=== PATIENT | female | born 1990 | race Caucasian/White ===

== ENCOUNTER 2025-02-01 21:09 | Inpatient (IN) | payer BC ==
[~2025-02-01] VITALS: Ht 180.3 cm; Wt 71.7 kg
[2025-02-01 22:32] LABS: PLATELET COUNT (AUTO) 263 K/uL (179-408); RED BLOOD CELL COUNT(AUTO) 4.37 MIL/uL (3.63-4.92); RED CELL DISTRIBUTION WIDTH 13.6 % (12.3-17.7); WHITE BLOOD COUNT (AUTO) 5.2 K/uL (3.8-11.8)
[2025-02-01 22:38] LABS: CREATININE 0.7 mg/dL (0.6-1.3); SODIUM SERUM 139.0 mmol/L (136-145); UREA NITROGEN, BLOOD 7.0 mg/dL (7-18)
[2025-02-01 22:43] LABS: ASPARTATE AMINOTRANSFERASE 12.0 U/L (15-37); TOTAL PROTEIN, SERUM 7.3 g/dL (6.4-8.2)
[2025-02-01] MEDS: diphenhydrAMINE 50 MG/1 ML VIAL IV ONE (23:02)
[2025-02-01] MEDS: HYDROCORTISONE SOD SUCCINATE 100 MG/2 ML VIAL IV ONE (23:03)
[2025-02-01] MEDS ORDERED: IOHEXOL 350 100 ML INFUS..BTL ONE (23:18)
[2025-02-01] MEDS ORDERED: IV NORMAL SALINE 250 ML IV ONE (23:18)
[2025-02-01] MEDS ORDERED: SWABABLE VALVE TRANSFER SET EA MC ONE (23:18)
[2025-02-02] MEDS ORDERED: REMEDY ESSENTIAL ZINC PASTE 113 GM TP PRN (02:30)
[2025-02-02] MEDS ORDERED: ONDANSETRON 4 MG/2 ML VIAL IV PRN (02:30)
[2025-02-02] MEDS ORDERED: ACETAMINOPHEN 325 MG TABLET PO PRN (02:30)
[2025-02-02] MEDS ORDERED: MAGNESIUM HYDROXIDE 30 ML LIQUID UDC PO PRN (02:30)
[2025-02-02] MEDS: ASPIRIN 325 MG TABLET PO ONE (03:23)
[2025-02-02 03:41] LABS: CREATININE 0.8 mg/dL (0.6-1.3); SODIUM SERUM 135 mmol/L (136-145); UREA NITROGEN, BLOOD 8 mg/dL (7-18)
[2025-02-02 03:47] LABS: ASPARTATE AMINOTRANSFERASE 13 U/L (15-37); TOTAL PROTEIN, SERUM 7.2 g/dL (6.4-8.2)
[2025-02-02 06:13] VITALS: BP 101/60; TEMP 98; O2SAT 94
[2025-02-02 07:29] VITALS: BP 92/50; TEMP 98.5; O2SAT 98
[2025-02-02] MEDS: BLOOD SUGAR DIAGNOSTIC 1 EACH STRIP VI SCH (08:03)
[2025-02-02] MEDS: PANTOPRAZOLE SODIUM 40 MG TABLET.DR PO SCH (08:09)
[2025-02-02] MEDS ORDERED: ASPIRIN 81 MG TAB.CHEW PO SCH (09:00)
[2025-02-02] MEDS ORDERED: diphenhydrAMINE 50 MG/1 ML VIAL IV ONE (10:15)
[2025-02-02] MEDS ORDERED: FAMOTIDINE. 20 MG/2 ML VIAL IV ONE (10:15)
[2025-02-02 11:04] VITALS: BP 106/66; TEMP 98.5; O2SAT 94
[2025-02-02] MEDS: FAMOTIDINE. 20 MG/2 ML VIAL IV ONE (11:04)
[2025-02-02] MEDS: METOCLOPRAMIDE HCL 10 MG/2 ML VIAL IV ONE (11:04)
[2025-02-02] MEDS: diphenhydrAMINE 50 MG/1 ML VIAL IV ONE (11:06)
[2025-02-02] MEDS ORDERED: BLOOD SUGAR DIAGNOSTIC 1 EACH STRIP VI SCH (12:00)
[2025-02-02] MEDS ORDERED: GADOTERATE MEGLUMINE 10 MMOL/20 ML VIAL IV ONE (15:12)
[2025-02-02 15:30] VITALS: BP 112/57; TEMP 98.5; O2SAT 96
[2025-02-02] MEDS ORDERED: ASPI81TA31 PO (15:36)
[2025-02-03] MEDS ORDERED: ASPIRIN 81 MG TAB.CHEW PO SCH (09:00)
== END 2025-02-02 17:00 | disposition home or self-care (01) | DRG 103 ==
LOC: ER 21:24 → TELE3 02-02 02:50
PROVIDERS: ADMIT Registered Nurse Psychiatric/Mental Health; ATTEND Registered Nurse Psychiatric/Mental Health
DX: G43.109 Migraine with aura, not intractable, without status migrainosus (principal); G45.9 Transient cerebral ischemic attack, unspecified; R56.9 Unspecified convulsions; Z79.890 Hormone replacement therapy; Z90.49 Acquired absence of other specified parts of digestive tract; H53.47 Heteronymous bilateral field defects; Z97.5 Presence of (intrauterine) contraceptive device; R53.1 Weakness; Z91.013 Allergy to seafood
CPT/HCPCS: 70496; 70553; 84443; 84484; 85025; 85651; 85730; 93307; A4606; A4663; A9575; G0378; J1200; J1308; J1720; J2765; J2919; Q9967